=== PATIENT | male | born 1985 | race Caucasian/White ===

== ENCOUNTER 2021-06-03 18:16 | Emergency (ER) | payer MEDICAID ==
[~2021-06-03] VITALS: Ht 182.9 cm; Wt 160.1 kg
[~2021-06-03 18:16] MED LIST: ALBUTEROL INHAL17 GM IH; CLONAZEPAM; DEPAKOTE; DOXYCYCLINE 10100 MG PO; GEODON80 MG PO; MEDROLDOSEPACK PO; PRILOSEC40 MG PO; TRILEPTAL 300300 MG PO
[2021-06-03] MEDS ORDERED: LISINOPRIL10 MG PO (18:51)
[2021-06-03] MEDS ORDERED: METFORMIN HCL500 MG PO (18:52)
[2021-06-03] MEDS ORDERED: MINIPRESS2 MG PO (18:53)
[2021-06-03] MEDS ORDERED: HYDROXYZINE HCL50 MG PO (18:54)
[2021-06-03] MEDS ORDERED: IBU-200200 MG PO (18:56)
[2021-06-03] MEDS ORDERED: OMEPRAZOLE 20 M20 M1 PO (18:57)
== END 2021-06-03 18:45 ==
LOC: M.ERS 18:16
DX: Z20.822 Contact with and (suspected) exposure to COVID-19; I46.9 Cardiac arrest, cause unspecified; F31.9 Bipolar disorder, unspecified; Z79.51 Long term (current) use of inhaled steroids; Z79.84 Long term (current) use of oral hypoglycemic drugs; Z79.899 Other long term (current) drug therapy; Z88.8 Allergy status to other drugs, medicaments and biological substances